=== PATIENT | female | born 1980 | race Caucasian/White ===

== ENCOUNTER 2019-03-05 02:26 | Emergency (ER) | payer MEDICAID ==
[2019-03-05 02:44] VITALS: BP 123/84; PULSE 93
--- NOTE | 2019-03-05 03:02 | EDM.PDOC ---
ED HPI GENERAL MEDICAL PROBLEM - General Chief Complaint: General Stated Complaint: INFECTION ON THUMB Time Seen by Provider: 03/05/19 02:55 Source of Information: Reports: Patient, RN Notes Reviewed History Limitations: Reports: No Limitations - History of Present Illness INITIAL COMMENTS - FREE TEXT/NARRATIVE: 38-year-old female presents emergency department today complaint of redness and pain over her left thumb she does have pain shooting up into her arm redness is predominantly over the thumb no red streaks up the arm no fevers, she's had this for a couple of days - Related Data Allergies Allergy/AdvReac Type Severity Reaction Status Date / Time No Known Allergies Allergy Verified 03/05/19 02:39 Home Meds: Home Meds Ciprofloxacin HCl [Cipro] 500 mg PO BID #20 tablet 04/26/16 [Rx] Ibuprofen 800 mg PO Q8H PRN 04/26/16 [History] Ondansetron [Zofran ODT] 4 mg PO Q6H PRN #10 tab.dis 04/26/16 [Rx] Sulfamethoxazole/Trimethoprim [Bactrim 400-80 MG] 1 each PO ASDIRECTED 04/26/16 [History] hydrOXYzine pamoate [Hydroxyzine Pamoate] 25 mg PO BID 04/26/16 [History] Past Medical History HEENT History: Reports: Impaired Vision Gastrointestinal History: Reports: GERD Genitourinary History: Reports: Pyelonephritis, Renal Calculus, UTI, Recurrent [employer]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: , 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 , 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 Musculoskeletal History: Reports: Fibromyalgia Neurological History: Reports: Concussion, Head Trauma, Migraines Psychiatric History: Reports: Anxiety, Depression, Panic Attack, PTSD Endocrine/Metabolic History: Reports: Other (See Below) Other Endocrine/Metabolic History: hyperthyroid as a child Hematologic History: Reports: Anemia - Infectious Disease History Infectious Disease History: Reports: Chicken Pox - Past Surgical History HEENT Surgical History: Reports: Adenoidectomy, Myringotomy w Tube(s), Tonsillectomy, Other (See Below) Other HEENT Surgeries/Procedures: uvvulaectomy Female Surgical History: Reports: Tubal Ligation, Other (See Below) Musculoskeletal Surgical History: Reports: Other (See Below) Social & Family History - Tobacco Use Smoking Status *Q: Current Every Day Smoker Years of Tobacco use: 20 Packs/Tins Daily: 1 - Caffeine Use Caffeine Use: Reports: Soda Other Caffeine Use: 2 bottles a day - Recreational Drug Use Recreational Drug Use: No ED ROS GENERAL - Review of Systems Review Of Systems: See Below Constitutional: Denies: Fever, Chills HEENT: Reports: No Symptoms Respiratory: Reports: No Symptoms (First nonicteric smile) Cardiovascular: Reports: No Symptoms Skin: Reports: Pallor, Erythema, Wound ED EXAM, GENERAL - Physical Exam Exam: See Below Exam Limited By: No Limitations General Appearance: Alert, WD/WN, No Apparent Distress Respiratory/Chest: No Respiratory Distress Skin Exam: Erythema, Increased Warmth, Pallor Front/Back Body Diagram: 1 - reddness Course - Vital Signs Last Recorded V/S: Last Vital Signs Temp 99.3 F 03/05/19 02:40 Pulse 93 03/05/19 02:40 Resp 15 03/05/19 02:40 BP 123/84 03/05/19 02:40 Pulse Ox 96 03/05/19 02:40 Departure - Departure Time of Disposition: 03:01 Disposition: Home, Self-Care 01 Condition: Fair Clinical Impression: Paronychia - Discharge Information Referrals: Shawna Simmons PA-C [Primary Care Provider] - Additional Instructions: Take full course of antibiotics, use Tylenol or Motrin as needed for pain control, Please followup with your primary care provider in 3-5 days if not better, please call return to the emergency department with worsening of symptoms. - Assessment/Plan Plan: Assessment Acuity = acute Site and laterality = paronychia left thumb Etiology = probable bacterial cause Manifestations = pain Location of injury = Home Lab values = none Plan Left treat empirically Keflex 500 mg by mouth 4 times a day 7 days follow-up primary care 3-5 days if no improvement Tylenol Motrin as needed for pain control This note was dictated using [employer] recognition software please call with any questions on syntax or grammar.
== END 2019-03-05 03:10 | disposition home or self-care (01) ==
LOC: JP.ED 02:26
DX: L03.012 Cellulitis of left finger (principal); F17.210 Nicotine dependence, cigarettes, uncomplicated
CPT/HCPCS: 99282

== ENCOUNTER 2019-05-09 21:18 | Emergency (ER) | payer MEDICAID ==
[2019-05-09 21:33] VITALS: BP 134/86; PULSE 104
--- NOTE | 2019-05-09 21:53 | EDM.PDOC ---
ED HPI GENERAL MEDICAL PROBLEM - General Chief Complaint: ENT Problem Stated Complaint: EAR Time Seen by Provider: 05/09/19 21:44 Source of Information: Reports: Patient, Family, RN Notes Reviewed History Limitations: Reports: No Limitations - History of Present Illness INITIAL COMMENTS - FREE TEXT/NARRATIVE: 38-year-old female presents emergency department a complaint of sinus pressure, sore throat and ear pain as well as fever she has been ill for a week prior to this she had nausea vomiting diarrhea 2 weeks ago but that now has resolved. 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 [employer]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: , 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 , 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 Musculoskeletal History: Reports: Fibromyalgia Neurological History: Reports: Concussion, Head Trauma, Migraines Psychiatric History: Reports: Anxiety, Depression, Panic Attack, PTSD Endocrine/Metabolic History: Reports: Other (See Below) Other Endocrine/Metabolic History: hyperthyroid as a child Hematologic History: Reports: Anemia - Infectious Disease History Infectious Disease History: Reports: Chicken Pox - Past Surgical History HEENT Surgical History: Reports: Adenoidectomy, Myringotomy w Tube(s), Tonsillectomy, Other (See Below) Other HEENT Surgeries/Procedures: uvvulaectomy Female Surgical History: Reports: Kidney stone extraction, Tubal Ligation Musculoskeletal Surgical History: Reports: ORIF Other Musculoskeletal Surgeries/Procedures:: left leg- tibia Social & Family History - Tobacco Use Smoking Status *Q: Current Every Day Smoker Years of Tobacco use: 25 Packs/Tins Daily: 1 - Caffeine Use Caffeine Use: Reports: Energy Drinks Other Caffeine Use: 2 bottles a day - Recreational Drug Use Recreational Drug Use: No ED ROS ENT - Review of Systems Review Of Systems: See Below Constitutional: Reports: Fever, Chills HEENT: Reports: Ear Pain, Sinus Problem, Throat Pain, Throat Swelling Respiratory: Reports: No Symptoms Cardiovascular: Reports: No Symptoms GI/Abdominal: Reports: No Symptoms ED EXAM, ENT - Physical Exam Exam: See Below Exam Limited By: No Limitations General Appearance: Alert, WD/WN, No Apparent Distress Ears: Normal External Exam, TM Erythema Nose: Normal Inspection, Normal Mucousa, No Blood Mouth/Throat: Normal Inspection, Normal Gums, Normal Lips, Normal Oropharynx, Normal Teeth Head: Atraumatic, Normocephalic, Sinus Tenderness Neck: Lymphadenopathy (R), Lymphadenopathy (L) Respiratory/Chest: No Respiratory Distress, Lungs Clear, Normal Breath Sounds, No Accessory Muscle Use, Chest Non-Tender Cardiovascular: Regular Rate, Rhythm, No Murmur Course - Vital Signs Last Recorded V/S: Last Vital Signs Temp 98.9 F 05/09/19 21:39 Pulse 104 H 05/09/19 21:39 Resp 16 05/09/19 21:39 BP 134/86 05/09/19 21:39 Pulse Ox 97 05/09/19 21:39 Departure - Departure Time of Disposition: 21:52 Disposition: Home, Self-Care 01 Condition: Fair Clinical Impression: Sinusitis Qualifiers: Sinusitis location: maxillary Chronicity: acute Recurrence: non-recurrent Qualified Code(s): J01.00 - Acute maxillary sinusitis, unspecified - Discharge Information Referrals: Shawna Simmons PA-C [Primary Care Provider] - Additional Instructions: Take full course of antibiotics use Tylenol or Motrin to help control fevers, please followup with your primary care provider in 7-10 days if not better, please call return to the emergency department with worsening of symptoms. Sepsis Event Note - Evaluation Sepsis Screening Result: No Definite Risk - Focused Exam Vital Signs: Vital Signs Temp Pulse Resp BP Pulse Ox 05/09/19 21:39 98.9 F 104 H 16 134/86 97 05/09/19 21:30 98.9 F 104 H 16 134/86 97 Date Exam was Performed: 05/09/19 Time Exam was Performed: 21:49 - Assessment/Plan Plan: Assessment Acuity = acute Site and laterality = sinusitis Etiology = probable bacterial cause Manifestations = fever Location of injury = Home Lab values = none Plan Elected to treat empirically with Augmentin 875 p.o. twice daily x10 days follow -up primary care in 7 to 10 days if not better This note was dictated using [employer] voice recognition software please call with any questions on syntax or grammar.
== END 2019-05-09 21:56 | disposition home or self-care (01) ==
LOC: JP.ED 21:18
DX: J01.00 Acute maxillary sinusitis, unspecified (principal); F17.210 Nicotine dependence, cigarettes, uncomplicated
CPT/HCPCS: 99282

== ENCOUNTER 2019-06-25 15:32 | Emergency (ER) | payer MEDICAID ==
--- NOTE | 2019-06-25 17:25 | EDM.PDOC ---
ED HPI GENERAL MEDICAL PROBLEM - General Chief Complaint: Fever Stated Complaint: FEVER,BODY ACHES,COUGH Time Seen by Provider: 06/25/19 17:06 Source of Information: Reports: Patient History Limitations: Reports: No Limitations - History of Present Illness INITIAL COMMENTS - FREE TEXT/NARRATIVE: Patient has had generalized aches, low-grade fever, cough over the last day or 2. She is just finishing a course of cefuroxime for an ear infection. Her daughter has similar symptoms as does her and since they were coming to be seen, she decided she should be evaluated too. 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 Musculoskeletal History: Reports: Fibromyalgia Neurological History: Reports: Concussion, Head Trauma, Migraines Psychiatric History: Reports: Anxiety, Depression, Panic Attack, PTSD Endocrine/Metabolic History: Reports: Other (See Below) Other Endocrine/Metabolic History: hyperthyroid as a child Hematologic History: Reports: Anemia - Infectious Disease History Infectious Disease History: Reports: Chicken Pox - Past Surgical History HEENT Surgical History: Reports: Adenoidectomy, Myringotomy w Tube(s), Tonsillectomy, Other (See Below) Other HEENT Surgeries/Procedures: uvvulaectomy Female Surgical History: Reports: Kidney stone extraction, Tubal Ligation Musculoskeletal Surgical History: Reports: ORIF Other Musculoskeletal Surgeries/Procedures:: left leg- tibia Social & Family History - Tobacco Use Smoking Status *Q: Current Every Day Smoker Years of Tobacco use: 10 Packs/Tins Daily: 1 - Caffeine Use Caffeine Use: Reports: Energy Drinks Other Caffeine Use: 2 bottles a day ED ROS ENT - Review of Systems Review Of Systems: See Below Constitutional: Reports: Fever, Malaise. Denies: Chills HEENT: Reports: Ear Pain Respiratory: Reports: Cough. Denies: Shortness of Breath Cardiovascular: Reports: No Symptoms GI/Abdominal: Reports: No Symptoms ED EXAM, ENT - Physical Exam Exam: See Below Exam Limited By: No Limitations General Appearance: Alert, No Apparent Distress Nose: Normal Inspection Mouth/Throat: Normal Oropharynx Head: Atraumatic Neck: Non-Tender Respiratory/Chest: Lungs Clear Cardiovascular: Regular Rate, Rhythm Course - Vital Signs Last Recorded V/S: Last Vital Signs Temp 36.3 C 06/25/19 16:46 Pulse 90 06/25/19 16:46 Resp 16 06/25/19 16:46 BP 113/78 06/25/19 16:46 Pulse Ox 100 06/25/19 16:46 - Re-Assessments/Exams Free Text/Narrative Re-Assessment/Exam: 06/25/19 21:50 Exam is unremarkable. Given that she is completing a course of antibiotic. I would not expect any bacterial component to her current symptoms. It sounds viral in nature. I recommend regular doses of Tylenol or ibuprofen for symptomatic relief. Remainder of symptoms will likely take the next 5 or 7 days to go away. Recheck with primary care if not improved in one week or so Departure - Departure Time of Disposition: 17:24 Disposition: Home, Self-Care 01 Condition: Good Clinical Impression: Viral syndrome - Discharge Information *PRESCRIPTION DRUG MONITORING PROGRAM REVIEWED*: Not Applicable *COPY OF PRESCRIPTION DRUG MONITORING REPORT IN PATIENT JUAN: Not Applicable Instructions: Viral Respiratory Infection, [id number] Referrals: Shawna Simmons PA-C [Primary Care Provider] - Forms: ED Department Discharge Additional Instructions: Use regular doses of ibuprofen 600 mg 3 times a day or Tylenol 1000 mg up to 4 times a day for aches and other discomfort. Complete last of antibiotic tablets. Recheck with primary care if not better in one week. Return to ER if feeling worse. Sepsis Event Note - Evaluation Sepsis Screening Result: No Definite Risk - Focused Exam Vital Signs: Vital Signs Temp Pulse Resp BP Pulse Ox 06/25/19 16:46 36.3 C 90 16 113/78 100 06/25/19 16:14 36.3 C 90 16 113/78 100 Date Exam was Performed: 06/25/19 Time Exam was Performed: 21:47
== END 2019-06-25 17:47 | disposition home or self-care (01) ==
LOC: JP.ED 15:32
CPT/HCPCS: 99283

== ENCOUNTER 2022-09-15 15:36 | Emergency (ER) | payer MEDICAID ==
[2022-09-15 15:48] VITALS: BP 129/85; PULSE 76
[2022-09-15] MEDS ORDERED: Ketorolac 30 MG/ML SDV IM ONE (16:07)
[2022-09-15 16:43] LABS: ESTIMATED GFR 110 mL/min (>60); TROPONIN I HIGH SENSITIVITY 4.7 pg/mL (<=60.3)
== END 2022-09-15 17:48 | disposition home or self-care (01) ==
LOC: JP.ED 15:36
DX: M25.511 Pain in right shoulder (principal); Z72.0 Tobacco use; X50.3XXA Overexertion from repetitive movements, initial encounter; Y99.0 Civilian activity done for income or pay
CPT/HCPCS: 36415; 80053; 84484; 85025; 93005; 93010; 96372; 99283; J1885

== ENCOUNTER 2022-10-28 22:58 | Emergency (ER) | payer BC, MEDICAID ==
[2022-10-28 23:17] VITALS: BP 109/74; PULSE 91
== END 2022-10-29 01:03 | disposition home or self-care (01) ==
LOC: JP.ED 22:58
DX: S92.354A Nondisplaced fracture of fifth metatarsal bone, right foot, initial encounter for closed fracture (principal); F17.210 Nicotine dependence, cigarettes, uncomplicated; Z86.16 Personal history of COVID-19; Z79.899 Other long term (current) drug therapy; Y93.01 Activity, walking, marching and hiking
CPT/HCPCS: 73630-26-RT; 73630-RT; 99283

== ENCOUNTER 2024-06-24 12:11 | Emergency (ER) | payer BC, MEDICAID ==
[2024-06-24 12:31] VITALS: BP 140/97
[2024-06-24 14:01] VITALS: PULSE 89
== END 2024-06-24 14:01 | disposition home or self-care (01) ==
LOC: JP.ED 12:11
DX: H66.002 Acute suppurative otitis media without spontaneous rupture of ear drum, left ear (principal); K21.9 Gastro-esophageal reflux disease without esophagitis; F17.210 Nicotine dependence, cigarettes, uncomplicated; Z90.710 Acquired absence of both cervix and uterus; Z79.899 Other long term (current) drug therapy
CPT/HCPCS: 99282

== ENCOUNTER 2024-09-26 11:38 | Emergency (ER) | payer BC ==
[2024-09-26] MEDS: Sodium Chloride 0.9% 1,000 ML IV STA (12:52)
[2024-09-26 12:56] LABS: BASOPHILS PERCENT AUTO 0.1 % (0.1-1.3); EOSINOPHILS ABSOLUTE AUTO 0.08 K/uL (0.00-0.40); EOSINOPHILS PERCENT AUTO 0.6 % (0.0-5.4); IMMATURE GRAN ABSOLUTE AUTO 0.07 K/uL (0.00-0.23); IMMATURE GRAN PERCENT AUTO 0.5 % (0.0-0.7); LYMPHOCYTES ABSOLUTE AUTO 1.79 K/uL (0.8-3.3); LYMPHOCYTES PERCENT AUTO 12.9 % (11.4-47.7); MEAN CORPUSCULAR HEMOGLOBIN 31.2 pg (31.6-35.5); MEAN CORPUSCULAR HGB CONC 33.3 g/dL (31.6-35.5); MEAN CORPUSCULAR VOLUME 93.6 fL (81.4-99.0); MONOCYTES ABSOLUTE AUTO 1.46 K/uL (0.20-0.90); MONOCYTES PERCENT AUTO 10.5 % (3.3-12.6); NEUTROPHILS PERCENT AUTO 75.4 % (40.0-78.1); PLATELET COUNT,PLT 205 K/uL (130-375); RED BLOOD CELL COUNT 4.81 M/uL (3.77-5.24); WHITE BLOOD CELL COUNT,WBC 13.9 K/uL (3.2-11.0)
[2024-09-26 13:01] LABS: BASOPHILS ABSOLUTE AUTO 0.02 K/uL (0.00-0.10)
[2024-09-26 13:02] LABS: APPEARANCE,URINE TURBID (CLEAR); BILIRUBIN,URINE SMALL (NEGATIVE); COLOR,URINE YELLOW (YELLOW); GLUCOSE,URINE NEGATIVE (NEGATIVE); KETONES,URINE 40 mg/dL (NEGATIVE); LEUKOCYTE ESTERASE,URINE LARGE (NEGATIVE); NITRITE,URINE POSITIVE (NEGATIVE); OCCULT BLOOD,URINE LARGE (NEGATIVE); PROTEIN,URINE >=300 mg/dL (NEGATIVE)
[2024-09-26 13:07] LABS: A/G RATIO 0.7 (1.2-2.2); ALANINE AMINOTRANSFERASE,ALT 52 U/L (12-78); ALBUMIN 3.5 g/dL (3.4-5.0); ALKALINE PHOSPHATASE 116 U/L (46-116); ASPARTATE AMNIOTRANSFERASE,AST 24 U/L (15-37); BILIRUBIN TOTAL 1.3 mg/dL (0.2-1.0); BLOOD UREA NITROGEN,BUN 31 mg/dL (7-18); C-REACTIVE PROTEIN 17.45 mg/dL (<0.50); CALCIUM 9.5 mg/dL (8.5-10.1); CARBON DIOXIDE,CO2 24 mmol/L (21-32); CHLORIDE,CL 101 mmol/L (100-108); CREATININE 1.1 mg/dL (0.6-1.0); ESTIMATED GFR 63 mL/min (>60); GLUCOSE RANDOM 125 mg/dL (74-106); POTASSIUM,K 3.2 mmol/L (3.6-5.2); PROTEIN TOTAL,TP 8.3 g/dL (6.4-8.2); SODIUM,NA 141 mmol/L (140-148)
[2024-09-26 13:14] LABS: ANION GAP 19.2 mmol/L (5.0-14.0)
[2024-09-26 13:15] LABS: AMORPHOUS SEDIMENT,URINE NOT SEEN; BACTERIA,URINE MANY; EPITHELIAL CELLS,URINE FEW; MUCUS,URINE MODERATE; RBC,URINE 75-100 (0-5); WBC,URINE PACKED (0-5)
[2024-09-26 13:23] LABS: AMPHETAMINES SCREEN, URINE NEGATIVE (NEGATIVE); BARBITURATE SCREEN,URINE NEGATIVE (NEGATIVE); BENZODIAZEPINES SCREEN,URINE NEGATIVE (NEGATIVE); METHADONE SCREEN, URINE NEGATIVE (NEGATIVE); METHAMPHETAMINES SCREEN, URINE NEGATIVE (NEGATIVE); OXYCODONE SCREEN,URINE NEGATIVE (NEGATIVE); PROPOXYPHENE SCREEN,URINE NEGATIVE (NEGATIVE); THC SCREEN,URINE 50 NG/ML PRESUMPTIVE POSITIVE (NEGATIVE)
[2024-09-26] MEDS: Ondansetron 4 MG/2 ML SDV IVPUSH ONE (14:57)
[2024-09-26] MEDS: cefTRIAXone 1 GM in Sodium Chloride 0.9% 50 ML IV SCH (15:01)
[2024-09-26] MEDS: Sodium Chloride 0.9% 1,000 ML IV ONE (15:04)
[2024-09-26] MEDS: Acetaminophen 325 MG Tab PO ONE (15:04)
[2024-09-26 16:13] VITALS: BP 105/64; PULSE 84
== END 2024-09-26 17:02 | disposition home or self-care (01) ==
LOC: JP.ED 11:38
DX: N39.0 Urinary tract infection, site not specified (principal); F17.200 Nicotine dependence, unspecified, uncomplicated; Z79.899 Other long term (current) drug therapy; Z90.710 Acquired absence of both cervix and uterus
CPT/HCPCS: 36415; 80053; 80305; 81001; 83605; 85025; 86140; 87040; 87086; 87088; 87186; 96361; 96365; 96375; 99284; A9270; J0696; J2405; J7030

== ENCOUNTER 2025-01-24 07:47 | Emergency (ER) | payer BC ==
[2025-01-24] MEDS ORDERED: Naloxone 0.4 MG/ML SDV IVPUSH PRN ×2 (08:54→09:29)
[2025-01-24 09:16] LABS: BASOPHILS PERCENT AUTO 0.1 % (0.1-1.3); EOSINOPHILS PERCENT AUTO 0.1 % (0.0-5.4); IMMATURE GRAN ABSOLUTE AUTO 0.10 K/uL (0.00-0.23); IMMATURE GRAN PERCENT AUTO 0.6 % (0.0-0.7); LYMPHOCYTES ABSOLUTE AUTO 1.46 K/uL (0.8-3.3); LYMPHOCYTES PERCENT AUTO 8.1 % (11.4-47.7); MONOCYTES ABSOLUTE AUTO 1.82 K/uL (0.20-0.90); MONOCYTES PERCENT AUTO 10.1 % (3.3-12.6); NEUTROPHILS ABSOLUTE AUTO 14.64 K/uL (1.0-7.6); NEUTROPHILS PERCENT AUTO 81.0 % (40.0-78.1); PLATELET COUNT,PLT 368 K/uL (130-375); RED BLOOD CELL COUNT 4.68 M/uL (3.77-5.24); WHITE BLOOD CELL COUNT,WBC 18.1 K/uL (3.2-11.0)
[2025-01-24 09:21] LABS: BASOPHILS ABSOLUTE AUTO 0.02 K/uL (0.00-0.10); EOSINOPHILS ABSOLUTE AUTO 0.01 K/uL (0.00-0.40)
[2025-01-24] MEDS: Ondansetron 4 MG/2 ML SDV IVPUSH ONE (09:34)
[2025-01-24 09:39] LABS: A/G RATIO 0.6 (1.2-2.2); ALANINE AMINOTRANSFERASE,ALT 33 U/L (12-78); ASPARTATE AMNIOTRANSFERASE,AST 19 U/L (15-37); BILIRUBIN TOTAL 1.2 mg/dL (0.2-1.0); BLOOD UREA NITROGEN,BUN 21 mg/dL (7-18); CARBON DIOXIDE,CO2 24 mmol/L (21-32); CHLORIDE,CL 104 mmol/L (100-108); CREATININE 0.9 mg/dL (0.6-1.0); EST CRCL DRUG DOSING (CG) 75.95 mL/min; ESTIMATED GFR 80 mL/min (>60); GLUCOSE RANDOM 146 mg/dL (74-106); POTASSIUM,K 3.5 mmol/L (3.6-5.2); PROTEIN TOTAL,TP 8.6 g/dL (6.4-8.2); SODIUM,NA 140 mmol/L (140-148); TROPONIN I HIGH SENSITIVITY 4.5 pg/mL (<=60.3)
[2025-01-24] MEDS: Sodium Chloride 0.9% 10 ML Syringe FLUSH PRN (10:29)
[2025-01-24] MEDS: Iopamidol 612 MG/ML 100 ML Bottle IV PRN (10:29)
[2025-01-24 11:56] LABS: APPEARANCE,URINE TURBID (CLEAR); GLUCOSE,URINE NEGATIVE (NEGATIVE); OCCULT BLOOD,URINE SMALL (NEGATIVE)
[2025-01-24 12:01] LABS: AMPHETAMINES SCREEN, URINE NEGATIVE (NEGATIVE); METHADONE SCREEN, URINE NEGATIVE (NEGATIVE); METHAMPHETAMINES SCREEN, URINE NEGATIVE (NEGATIVE); OXYCODONE SCREEN,URINE NEGATIVE (NEGATIVE); PROPOXYPHENE SCREEN,URINE NEGATIVE (NEGATIVE); THC SCREEN,URINE 50 NG/ML NEGATIVE (NEGATIVE)
[2025-01-24 12:03] LABS: SQUAMOUS EPITHELIAL CELLS,UR NOT SEEN /HPF
[2025-01-24] MEDS: Ketorolac 30 MG/ML SDV IVPUSH ONE (13:33)
[2025-01-24 19:13] VITALS: BP 98/53; PULSE 94
[2025-01-27 15:59] LABS: B. BURGDORFERI IGG IMMUNOBLOT Negative (Negative); B. BURGDORFERI IGM IMMUNOBLOT Negative (Negative)
[2025-01-28 01:31] LABS: ANAPLASMA PHAGOCYTOPHILUM PCR Not Detected; BABESIA MICROTI BY PCR Not Detected; EHRLICHIA CHAFFEENSIS BY PCR Not Detected; EHRLICHIA EWINGII/CANIS BY PCR Not Detected; EHRLICHIA MURIS-LIKE BY PCR Not Detected
== END 2025-01-24 19:37 ==
LOC: JP.ED 07:47
DX: N13.2 Hydronephrosis with renal and ureteral calculous obstruction (principal); E86.0 Dehydration; Z79.899 Other long term (current) drug therapy
CPT/HCPCS: 36415; 74177; 80053; 80305; 80307; 81001; 83605; 83690; 83735; 84484; 85025; 86140; 86617; 86618; 87040; 87426; 87468; 87469; 87484; 87798; 96361; 96365; 96366; 96374; 96375; 99285; J0696; J1171; J1885; J2405; J7030; Q9967; 99284

== ENCOUNTER 2025-02-04 18:17 | Emergency (ER) | payer BC ==
[2025-02-04 18:42] LABS: PLATELET COUNT,PLT 286 K/uL (130-375); RED BLOOD CELL COUNT 4.70 M/uL (3.77-5.24); WHITE BLOOD CELL COUNT,WBC 8.1 K/uL (3.2-11.0)
[2025-02-04 19:05] LABS: A/G RATIO 0.7 (1.2-2.2); ALANINE AMINOTRANSFERASE,ALT 41 U/L (12-78); ASPARTATE AMNIOTRANSFERASE,AST 21 U/L (15-37); BILIRUBIN TOTAL 0.4 mg/dL (0.2-1.0); BLOOD UREA NITROGEN,BUN 13 mg/dL (7-18); CARBON DIOXIDE,CO2 22 mmol/L (21-32); CHLORIDE,CL 104 mmol/L (100-108); CREATININE 0.9 mg/dL (0.6-1.0); EST CRCL DRUG DOSING (CG) 70.28 mL/min; ESTIMATED GFR 80 mL/min (>60); GLUCOSE RANDOM 114 mg/dL (74-106); POTASSIUM,K 3.7 mmol/L (3.6-5.2); PROTEIN TOTAL,TP 8.6 g/dL (6.4-8.2); SODIUM,NA 140 mmol/L (140-148)
[2025-02-04 19:08] LABS: LACTIC ACID 1.3 mmol/L (0.4-2.0)
[2025-02-04 19:12] LABS: EOSINOPHILS ABSOLUTE MAN 0.16 K/uL (0.00-0.40); EOSINOPHILS PERCENT MAN 2 % (2-4); LYMPHOCYTES ABSOLUTE MAN 2.11 K/uL (0.8-3.3); LYMPHOCYTES PERCENT MAN 26 % (24-44); MONOCYTES ABSOLUTE MAN 0.97 K/uL (0.20-0.90); MONOCYTES PERCENT MAN 12 % (2-6); NEUTROPHILS ABSOLUTE MAN 4.86 K/uL (1.0-7.6); SEG NEUTROPHILS PERCENT MAN 60 % (36-66)
[2025-02-04 19:13] LABS: ATYPICAL LYMPHOCYTES FEW
[2025-02-04] MEDS ORDERED: Naloxone 0.4 MG/ML SDV IVPUSH PRN (19:31)
[2025-02-04] MEDS: Ondansetron 4 MG/2 ML SDV IVPUSH ONE (19:37)
[2025-02-04 20:05] LABS: GLUCOSE,URINE NEGATIVE (NEGATIVE); OCCULT BLOOD,URINE LARGE (NEGATIVE)
[2025-02-04 20:09] LABS: APPEARANCE,URINE CLOUDY (CLEAR)
[2025-02-04 20:10] LABS: SQUAMOUS EPITHELIAL CELLS,UR RARE /HPF; UROTHELIAL CELLS,URINE NOT SEEN /HPF
[2025-02-04 21:13] VITALS: BP 101/60; PULSE 79
== END 2025-02-04 21:45 | disposition home or self-care (01) ==
LOC: JP.ED 18:17
DX: R11.2 Nausea with vomiting, unspecified (principal); K21.9 Gastro-esophageal reflux disease without esophagitis; F17.210 Nicotine dependence, cigarettes, uncomplicated; Z79.899 Other long term (current) drug therapy
CPT/HCPCS: 36415; 74018; 80053; 81001; 83605; 83690; 85025; 86140; 87086; 96361; 96374; 96375; 99284; J2405; J7030; J1171